=== PATIENT | female | born 1965 | race Two or more races ===

== ENCOUNTER 2022-12-30 04:08 | Day surgery (SDC) | payer OTHER ==
[2022-12-28 12:14] VITALS: BMI 31.0
[2022-12-30] MEDS ORDERED: BUPIVACAINE HCL/PF 0.5% (5MG/ML) 10 ML VIAL IJ ONE ×2 (15:09→15:19)
[2022-12-30] MEDS ORDERED: LIDOCAINE 1%/EPI 1:100000 (50 ML MULTI DOSE VIAL) INF ONE (15:10)
[2022-12-30] MEDS ORDERED: PROMETHAZINE HCL 25 MG/1 ML VIAL IVPB PRN (15:37)
[2022-12-30] MEDS ORDERED: oxyCODONE HCL 5 MG TABLET PO PRN (15:37)
[2022-12-30] MEDS ORDERED: ONDANSETRON 4 MG/2 ML VIAL IVPUSH PRN (15:37)
[2022-12-30] MEDS ORDERED: LACTATED RINGERS SOLUTION 1,000 ML IV SCH (15:45)
[2022-12-30 17:21] VITALS: RESP 18
[2022-12-30 17:58] VITALS: BP 147/84; PULSE 69; TEMP 97.8
== END 2022-12-30 18:25 | disposition home or self-care (01) ==
LOC: JASU-SURG 04:08
PROVIDERS: ATTEND Surgery Surgical Oncology
PROC: 0HBT0ZX Excision of Right Breast, Open Approach, Diagnostic (ICD-10-PCS; principal; 2022-12-30 14:30)
DX: C50.911 Malignant neoplasm of unspecified site of right female breast (principal)
CPT/HCPCS: 88307-TC; 94760

== ENCOUNTER 2023-06-22 04:52 | Day surgery (SDC) | payer OTHER ==
[2023-06-16 13:57] VITALS: BMI 31.4
[2023-06-22 13:06] VITALS: TEMP 98
[2023-06-22 13:10] VITALS: BP 134/86; PULSE 74; RESP 13
== END 2023-06-22 13:00 | disposition home or self-care (01) ==
LOC: JASU-ENDO 04:52
PROVIDERS: ATTEND Internal Medicine Gastroenterology
PROC: 0DBP8ZX Excision of Rectum, Via Natural or Artificial Opening Endoscopic, Diagnostic (ICD-10-PCS; principal; 2023-06-22 11:15)
DX: Z12.11 Encounter for screening for malignant neoplasm of colon (principal); D12.8 Benign neoplasm of rectum; K64.8 Other hemorrhoids; K57.30 Diverticulosis of large intestine without perforation or abscess without bleeding; I10 Essential (primary) hypertension; E11.9 Type 2 diabetes mellitus without complications
CPT/HCPCS: 88305-TC

== ENCOUNTER 2023-12-20 05:03 | Day surgery (SDC) | payer OTHER ==
[2023-12-15 17:49] VITALS: BMI 31.6
[2023-12-20] MEDS ORDERED: IBUPROFEN 400 MG TABLET (FP) PO PRN (10:09)
[2023-12-20] MEDS ORDERED: ACETAMINOPHEN 325 MG TABLET (FP) PO PRN (10:09)
[2023-12-20] MEDS ORDERED: LIDOCAINE HCL/PF 2% SDV 5ML VIAL ONE (10:50)
[2023-12-20] MEDS ORDERED: MIDAZOLAM HCL 2 MG/2 ML SINGLE DOSE VIAL ONE (10:50)
[2023-12-20] MEDS ORDERED: PROPOFOL 20 ML ONE (10:50)
[2023-12-20] MEDS ORDERED: ONDANSETRON 4 MG/2 ML VIAL ONE (11:07)
[2023-12-20] MEDS ORDERED: DEXAMETHASONE SOD PHOSPHATE 4 MG/1 ML VIAL ONE (11:07)
[2023-12-20] MEDS ORDERED: KETOROLAC TROMETHAMINE 30 MG/1 ML VIAL ONE (11:30)
[2023-12-20] MEDS: SILVER NITRATE 75% APPLIC STCK 1 PKT EACH TP ONE (11:35)
[2023-12-20] MEDS ORDERED: ONDANSETRON 4 MG/2 ML VIAL IVPUSH PRN (11:51)
[2023-12-20] MEDS ORDERED: oxyCODONE HCL 5 MG TABLET PO PRN (11:51)
[2023-12-20] MEDS ORDERED: LACTATED RINGERS SOLUTION 1,000 ML IV SCH (12:00)
[2023-12-20] MEDS: ACETAMINOPHEN 1000 MG/100 ML BAG IVPB ONE (12:15)
[2023-12-20 13:36] VITALS: RESP 18
[2023-12-20 14:11] VITALS: BP 142/83; PULSE 68; TEMP 97.7
== END 2023-12-20 14:13 | disposition home or self-care (01) ==
LOC: JASU-SURG 05:03
PROVIDERS: ATTEND Obstetrics & Gynecology
PROC: 0UB98ZZ Excision of Uterus, Via Natural or Artificial Opening Endoscopic (ICD-10-PCS; principal; 2023-12-20 10:00)
DX: D25.0 Submucous leiomyoma of uterus (principal)
CPT/HCPCS: 88305-TC; 94760; J0131